=== PATIENT | female | born 1950 ===

== ENCOUNTER 2018-07-23 07:07 | Emergency (ER) | payer BC ==
[2018-07-23 07:31] VITALS: RESP 18; TEMP 98.1; O2SAT 99
[2018-07-23] MEDS ORDERED: Sodium Chloride 0.9% 500 ML IV STA (07:53)
--- NOTE | 2018-07-23 08:05 | ED PDOC ---
HPI: Abdomen Time Seen by Provider: 07/23/18 07:17 Chief Complaint (Nursing): GI Problem Chief Complaint (Provider): Abdominal pain History Per: Patient History/Exam Limitations: no limitations Onset/Duration Of Symptoms: Days Outside of [place] travel?: No Current Symptoms Are (Timing): Still Present Location Of Pain/Discomfort: Diffuse, RUQ, LLQ Quality Of Discomfort: "Pain" Associated Symptoms: denies: Chest Pain Additional History Per: Patient Additional Complaint(s): 67yo female, with history of breast cancer and resultant bilateral mastectomy, comes to ER reporting diffuse abdominal pain, most great in her right upper and left lower quadrant. She states the pain is intermittent, and unrelieved with Tylenol. Otherwise, no associated fever, chills, chest pain, or other complaints. PMD: None Past Medical History Reviewed: Historical Data, Nursing Documentation, Vital Signs Vital Signs: Last Vital Signs Temp 98.1 F 07/23/18 07:18 Pulse 83 07/23/18 07:18 Resp 18 07/23/18 07:18 BP 136/79 07/23/18 07:18 Pulse Ox 99 07/23/18 07:18 - Medical History PMH: Malignancy (breast cancer) - Surgical History Surgical History: Hernia Repair Other surgeries: bilateral mastectomy - Family History Family History: States: Unknown Family Hx - Social History Current smoker - smoking cessation education provided: No Alcohol: None Drugs: Denies - Home Medications Home Medications: Ambulatory Orders Medication Instructions Recorded Acetaminophen with Codeine 1 tab PO Q6H PRN #10 tab 07/23/18 [Tylenol with Codeine No. 3 300 mg-30 mg] Ondansetron ODT [Zofran ODT] 4 mg PO Q8H PRN #20 odt 07/23/18 - Allergies Allergies/Adverse Reactions: Allergies Allergy/AdvReac Type Severity Reaction Status Date / Time meperidine [From Demerol] Allergy SWELLING Verified 07/23/18 07:31 Review of Systems ROS Statement: Except As Marked, All Systems Reviewed And Found Negative Constitutional: Negative for: Fever, Chills Cardiovascular: Negative for: Chest Pain Respiratory: Negative for: Shortness of Breath Gastrointestinal: Positive for: Vomiting, Abdominal Pain Physical Exam - Reviewed Nursing Documentation Reviewed: Yes Vital Signs Reviewed: Yes - Physical Exam Appears: Positive for: Non-toxic Head Exam: Positive for: ATRAUMATIC, NORMAL INSPECTION, NORMOCEPHALIC Skin: Positive for: Normal Color Eye Exam: Positive for: Normal appearance Neck: Positive for: Supple Cardiovascular/Chest: Positive for: Regular Rate, Rhythm, Other (bilateral mastectomy scars). Negative for: Tachycardia Respiratory: Positive for: Normal Breath Sounds. Negative for: Respiratory Distress Gastrointestinal/Abdominal: Positive for: Soft, Tenderness (diffuse tenderness, greatest in right upper and left lower quadrant), Guarding. Negative for: Mass, Rebound Back: Positive for: Normal Inspection Extremity: Positive for: Normal ROM. Negative for: Pedal Edema Neurological/Psych: Positive for: Awake, Alert, Normal Tone - Laboratory Results Result Diagrams: 07/23/18 08:15 07/23/18 08:35 - ECG O2 Sat by Pulse Oximetry: 99 (RA) Pulse Ox Interpretation: Normal Medical Decision Making Medical Decision Making: Impression: Diffuse abdominal pain Plan: -- Labs -- Urinalysis -- CT Abdomen/Pelvis -- Zofran 4mg IV -- IV Fluids -- Morphine 2mg IV 12:50 Pt feels better, abdomen nontender. 1300 CT Abdomen/Pelvis FINDINGS: LOWER THORAX: Left breast prosthesis noted. No infiltrate/effusion. LIVER: Unremarkable. No gross lesion or ductal dilatation. GALLBLADDER AND BILE DUCTS: There is some dependent heterogeneous material seen within the gallbladder lumen. This may represent calculi or sludge. No mural thickening. No pericholecystic fluid. PANCREAS: Unremarkable. No gross lesion or ductal dilatation. SPLEEN: Unremarkable. ADRENALS: Unremarkable. No mass. KIDNEYS AND URETERS: Unremarkable. No hydronephrosis. No solid mass. VASCULATURE: Unremarkable. No aortic aneurysm. There is atherosclerotic calcification of the abdominal aorta. There is probable ulcerating atheromatous plaque in the infrarenal abdominal aorta best seen on series 3, image 90-93 or on series 601, image 46 through 49. BOWEL: Unremarkable. No obstruction. No gross mural thickening. APPENDIX: Normal appendix. PERITONEUM: Unremarkable. No free fluid. No free air. LYMPH NODES: Unremarkable. No enlarged lymph nodes. BLADDER: Unremarkable. REPRODUCTIVE: Normal prostate BONES: No acute fracture. OTHER FINDINGS: None. IMPRESSION: No evidence of appendicitis or other acute inflammatory process. No bowel obstruction. Suspected ulcerating atheromatous plaque in the infrarenal abdominal aorta. Possible cholelithiasis without evidence of cholecystitis. Correlate with ultrasound examination. US Abdomen FINDINGS: LIVER: Measures 15.4 cm in length. Diffusely increased echogenicity of the liver parenchyma. Consistent with fatty infiltration. Smooth contour. No mass. No biliary dilatation. GALLBLADDER: Cholelithiasis. No mural thickening. No pericholecystic fluid. Negative sonographic Porter sign. COMMON BILE DUCT: Measures 4 mm. No stones. No dilatation. PANCREAS: Poorly visualized RIGHT KIDNEY: Measures 10.8 cm in length. Normal echogenicity. No calculus, mass, or hydronephrosis. AORTA: No aneurysmal dilatation. IVC: Unremarkable. OTHER FINDINGS: None . IMPRESSION: Cholelithiasis without sonographic evidence of cholecystitis. Fatty infiltration of the liver. [address] report with patient including incidental findings Patient informed to follow up with PMD in 2-3 days. ------- ScribeAttestation: Documented byLona Trevino, acting as a scribe for Martha Carroll MD. Provider ScribeAttestation: All medical record entries made by the Scribe were at my direction and personally dictated by me. I have reviewed the chart and agree that the record accurately reflects my personal performance of the history, physical exam, medical decision making, and the department course for this patient. I have also personally directed, reviewed, and agree with the discharge instructions and dis position. Disposition - Clinical Impression Clinical Impression: Cholelithiasis, Elevated LFTs, Atherosclerotic ulcer of aorta - Disposition Referrals: Christofer Claudio MD [Staff Provider] - Jefry Villarreal MD [Staff Provider] - Disposition: Routine/Home Disposition Time: 14:35 Condition: STABLE Additional Instructions: FOLLOW-UP WITH PMD WITHIN 2 DAYS WITHOUT FAIL. Prescriptions: Acetaminophen with Codeine [Tylenol with Codeine No. 3 300 mg-30 mg] 1 tab PO Q6H PRN #10 tab PRN Reason: Pain, Severe (8-10) Ondansetron ODT [Zofran ODT] 4 mg PO Q8H PRN #20 odt PRN Reason: Nausea/Vomiting Instructions: Gallstones, Atherosclerosis Forms: [facility] (Citizen Of [place]) Print Language: SRI LANKAN
[2018-07-23 08:27] LABS: BASO % 0.4 % (0.0-2.0); EOS % 0.1 % (0.0-4.0); HEMOGLOBIN 13.6 g/dL (12.0-16.0); LYMPH % 11.1 % (20.0-40.0); MEAN CELL VOLUME 88.9 fl (81.0-99.0); MEAN CORPUSCULAR HGB CONC 33.8 g/dL (33.0-37.0); MEAN PLATELET VOLUME 8.6 fl (7.2-11.7); MONO # 0.4 K/uL (0.0-0.8); MONO % 4.7 % (0.0-10.0); NEUT # 7.6 K/uL (1.8-7.0); NEUT % 83.7 % (50.0-75.0); NRBC % 0.1 % (0.0-0.0); RBC 4.55 Mil/uL (3.80-5.20); RED CELL DISTRIBUTION WIDTH 14.5 % (11.5-14.5); WHITE BLOOD COUNT 9.1 K/uL (4.8-10.8)
[2018-07-23 08:33] LABS: PROTHROMBIN TIME 11.4 Seconds (9.8-13.1)
[2018-07-23 08:36] LABS: PARTIAL THROMBOPLASTIN TIME 27.2 Seconds (25.6-37.1)
[2018-07-23 08:56] LABS: URINE BILIRUBIN NEGATIVE (NEGATIVE); URINE BLOOD NEGATIVE (NEGATIVE); URINE CLARITY CLEAR (Clear); URINE COLOR STRAW (YELLOW); URINE GLUCOSE (UA) NEG (NEGATIVE); URINE LEUKOCYTE ESTERASE NEG Leu/uL (Negative); URINE PROTEIN NEGATIVE (NEGATIVE); URINE UROBILINOGEN 0.2-1.0 mg/dL (0.2-1.0)
[2018-07-23 09:01] LABS: ALB/GLOB RATIO 1.2 (1.0-2.1); ALBUMIN 4.2 g/dL (3.5-5.0); ALT/SGPT 119 U/L (9-52); AST/SGOT 184 U/L (14-36); BLOOD UREA NITROGEN 13 mg/dl (7-17); CALCIUM 8.9 mg/dL (8.4-10.2); GFR NON-AFRICAN AMERICAN > 60; LIPASE 81 U/L (23-300)
--- NOTE | 2018-07-23 09:32 | CARD ---
APPROVED REPORT Date of service: 07/23/2018 EKG Measurement Heart [id number] <Conclusion> Sinus rhythm with premature atrial complexes Possible Left atrial enlargement Borderline ECG
[2018-07-23] MEDS ORDERED: Iohexol 300 100 ML IJ ONE (09:54)
[2018-07-23] MEDS ORDERED: Sodium Chloride 0.9% 50 ML IV ONE (09:54)
--- NOTE | 2018-07-23 11:03 | CT ---
Date of service: 07/23/2018 PROCEDURE: CT Abdomen and Pelvis with contrast HISTORY: RUQ/LLQ pain COMPARISON: None. TECHNIQUE: Contrast dose: 95 cc Omnipaque 3 [place] Radiation dose: Total exam DLP = 887.03 mGy-cm. This CT exam was performed using one or more of the following dose reduction techniques: Automated exposure control, adjustment of the mA and/or kV according to patient size, and/or use of iterative reconstruction technique. FINDINGS: LOWER THORAX: Left breast prosthesis noted. No infiltrate/effusion. LIVER: Unremarkable. No gross lesion or ductal dilatation. GALLBLADDER AND BILE DUCTS: There is some dependent heterogeneous material seen within the gallbladder lumen. This may represent calculi or sludge. No mural thickening. No pericholecystic fluid. PANCREAS: Unremarkable. No gross lesion or ductal dilatation. SPLEEN: Unremarkable. ADRENALS: Unremarkable. No mass. KIDNEYS AND URETERS: Unremarkable. No hydronephrosis. No solid mass. VASCULATURE: Unremarkable. No aortic aneurysm. There is atherosclerotic calcification of the abdominal aorta. There is probable ulcerating atheromatous plaque in the infrarenal abdominal aorta best seen on series 3, image 90-93 or on series 601, image 46 through 49. BOWEL: Unremarkable. No obstruction. No gross mural thickening. APPENDIX: Normal appendix. PERITONEUM: Unremarkable. No free fluid. No free air. LYMPH NODES: Unremarkable. No enlarged lymph nodes. BLADDER: Unremarkable. REPRODUCTIVE: Normal prostate BONES: No acute fracture. OTHER FINDINGS: None. IMPRESSION: No evidence of appendicitis or other acute inflammatory process. No bowel obstruction. Suspected ulcerating atheromatous plaque in the infrarenal abdominal aorta. Possible cholelithiasis without evidence of cholecystitis. Correlate with ultrasound examination.
--- NOTE | 2018-07-23 13:47 | US ---
Date of service: 07/23/2018 HISTORY: Abnormal CT COMPARISON: None. TECHNIQUE: Sonographic evaluation of the right upper quadrant of the abdomen. FINDINGS: LIVER: Measures 15.4 cm in length. Diffusely increased echogenicity of the liver parenchyma. Consistent with fatty infiltration. Smooth contour. No mass. No biliary dilatation. GALLBLADDER: Cholelithiasis. No mural thickening. No pericholecystic fluid. Negative sonographic Porter sign. COMMON BILE DUCT: Measures 4 mm. No stones. No dilatation. PANCREAS: Poorly visualized RIGHT KIDNEY: Measures 10.8 cm in length. Normal echogenicity. No calculus, mass, or hydronephrosis. AORTA: No aneurysmal dilatation. IVC: Unremarkable. OTHER FINDINGS: None . IMPRESSION: Cholelithiasis without sonographic evidence of cholecystitis. Fatty infiltration of the liver.
[2018-07-23 15:04] VITALS: BP 115/77; PULSE 71
== END 2018-07-23 14:35 | disposition home or self-care (01) ==
LOC: H.ER 07:07
DX: K80.20 Calculus of gallbladder without cholecystitis without obstruction (principal); K76.0 Fatty (change of) liver, not elsewhere classified; Z90.13 Acquired absence of bilateral breasts and nipples; Z85.3 Personal history of malignant neoplasm of breast; Z88.5 Allergy status to narcotic agent
CPT/HCPCS: 74177; 76705; 80053; 81003; 83690; 85025; 85610; 85730; 93005; 96360; 99284; J2270; J2405; J7040; Q9967